=== PATIENT | male | born 1975 | race Caucasian/White ===

== ENCOUNTER 2021-01-06 15:35 | Emergency (ER) | payer SELFPAY ==
[2021-01-06] VITALS (9 sets, daily range): BP systolic 115–138; BP diastolic 80–98; PULSE 65–105; RESP 15–24; TEMP 36.6; O2SAT 93–99; BMI 24.2
--- NOTE | 2021-01-06 | XRR_ITS ---
PROCEDURE INFORMATION: Exam: XR Chest Exam date and time: 01/06/2021 5:49 PM Age: 45 years old Clinical indication: Device placement; Chest tube TECHNIQUE: Imaging protocol: XR of the chest. Views: 1 view. Total images: 1 COMPARISON: CR XR chest 2V* [id number] 01/06/2021 4:06 PM FINDINGS: Tubes, catheters and devices: Interval placement of a right thoracotomy tube with resolution of the right tension pneumothorax. Lungs: Mild dependent atelectasis versus re-expansion edema right lung base. Left lung clear. Pleural spaces: No visible pleural effusion or residual right-sided pneumothorax. Heart/Mediastinum: Cardiac structures and configuration stable. Bones/joints: Unremarkable. XR/XR chest 1V portable [id number] IMPRESSION: Interval placement of a right thoracotomy tube with resolution of the right tension pneumothorax.
--- NOTE | 2021-01-06 15:54 | XRR_ITS ---
PROCEDURE INFORMATION: Exam: XR Chest Exam date and time: 01/06/2021 3:58 PM Age: 45 years old Clinical indication: Pain and injury or trauma; Other: Jose Luis fell on chest 1 week ago; Blunt trauma (contusions or hematomas); Chest pain; Type not specified; Injury date: 12/30/20; Additional info: Cough, chest pain TECHNIQUE: Imaging protocol: XR of the chest. Views: 2 views. Total images: 2 COMPARISON: No relevant prior studies available. FINDINGS: Lungs: Left lung clear. Pleural spaces: Large right tension pneumothorax of estimated 80%. Heart/Mediastinum: Cardiac structures in configuration with slight left mediastinal shift. Bones/joints: No visible rib fracture. XR/XR chest 2V* [id number] IMPRESSION: Large right tension pneumothorax of estimated 80%.
--- NOTE | 2021-01-06 15:58 | W.ED.COVID ---
Documented by User: KELSI Marie 01/06/21 17:13 HPI - COVID General: Chief Complaint: COVID symptoms Stated Complaint: CP, SOB Time Seen by Provider: 01/06/21 15:58 Triage information: Has fever, cough or shortness of breath. No known COVID + exposure last 14 days History of Present Illness: HPI Narrative: Patient is a 45-year-old male who comes to the ED with cough, congestion and body aches. Patient says symptoms started yesterday. He says he also has having some chest pain as well. He does scribes the chest pain as feeling of knives in his chest. He says he started developing the chest pain symptoms abruptly this morning. He says it feels like he cannot catch his breath and that his lungs collapsed. He says if he lays down his breathing is worse. COVID 19 common symptoms: positive non-productive cough, dyspnea, body aches and nasal congestion; negative fever(s), chills, productive cough, fatigue, headache(s), throat pain, nausea, vomiting or diarrhea COVID 19 other sytmptoms: positive chest pain COVID Results: Nasal/Oral Coronavirus 2019 PCR Pending 01/06/21 16:38 01/06/21 Review of Systems Const: Reports: body aches; Denies: fever(s), chills or fatigue Eyes: Denies: change in vision or eye discomfort ENMT: Reports: nasal discharge and nasal congestion; Denies: throat pain or odynophagia Card: Reports: chest pain; Denies: palpitations, edema, swelling of feet/ankles, dyspnea on exertion or orthopnea Resp: Reports: dyspnea and non-productive cough; Denies: productive cough GI: Denies: abdominal pain, nausea, vomiting, diarrhea, constipation or hematochezia : Denies: flank pain, difficulty urinating, dysuria or hematuria Musc: Denies: neck pain, back pain or extremity swelling Skin/Breast: Denies: rash or new lesions Neuro: Denies: headache(s), numbness in extremities or weakness in extremities Physical Exam Narrative: EXAM NARRATIVE: Patient was standing up in exam room when I entered. He appeared uncomfortable and was tachypneic Const: COMMON NORMALS: patient oriented x3, healthy appearing and alert GENERAL APPEARANCE: cooperative HENMT: COMMON NORMALS: normocephalic HEAD & SCALP: normocephalic MOUTH: Normal oral and palatal mucosa present THROAT: posterior oropharynx normal and uvula midline Neck/C-Spine: COMMON NORMALS: supple GENERAL: Yes normal visual inspection Resp: COMMON NORMALS: normal respiratory effort, No retractions and No use of accessory muscles EFFORT & INSPECTION: Yes tachypneic (approx 22-25 resp) AUSCULTATION: breath sounds absent on the right and diminished lung sounds on the right Cardio: COMMON NORMALS: regular rate, regular rhythm, S1 normal heart sound present, S2 normal heart sound present, No gallops present (Cardio), No clicks present (Cardio), No murmurs present (Cardio) and Peripheral pulses 2+ throughout RATE: regular rate RHYTHM: regular rhythm HEART SOUNDS: S1 normal heart sound present and S2 normal heart sound present PERIPHERAL PULSES: Peripheral pulses 2+ throughout GI: COMMON NORMALS: Normal to inspection, nondistended, normoactive bowel sounds present, Soft to palpation, non-tender and no masses PALPATION: Yes Soft to palpation : COMMON NORMALS: Yes no CVA tenderness BLADDER/KIDNEY EXAM: Yes no CVA tenderness Back/Pelvis: COMMON NORMALS: no CVA tenderness Extremity: COMMON NORMALS: normal to inspection Neuro: COMMON NORMALS: patient oriented x3 and moves all extremities SENSORIUM/ORIENTATION: Yes alert Skin: GENERAL SKIN EXAM: dry skin Course Vital Signs: Vital signs: Vital Signs Temperature 97.8 F 01/06/21 15:43 Pulse Rate 81 01/06/21 17:32 Respiratory Rate 16 01/06/21 17:32 Blood Pressure 125/98 01/06/21 17:32 Pulse Oximetry 97 01/06/21 17:32 MDM - COVID MDM Narrative: Medical decision making narrative: Patient is a 45-year-old male came in with some chest pain and shortness of breath. Lung sounds had decreased and diminished breath sounds to right lung. Chest x-ray showed tension pneumothorax of right lung. Patient was then moved to room 11 for chest tube placement. I told Dr. Dietrich about patient case and she will be taking over management of care for patient due to acuity. Lab Data: Attestation: I reviewed the patient's lab results. Labs: Lab Results 01/06/21 01/06/21 01/06/21 Range/Units 16:27 16:27 16:38 WBC 8.0 (4.0-10.0) 10^3/ uL RBC 5.68 H (4.1-5.3) 10^6/u L Hgb 16.8 H (11.7-16.6) g/dL Hct 52.6 H (42.0-52.0) % MCV 92.6 (80-94) fL MCH 29.6 (28.0-34.0) pg MCHC 31.9 (30.0-36.0) g/dL RDW 12.2 (12.1-15.1) % Plt Count 331 (130-400) 10^3/c mm MPV 9.3 (7.4-10.4) fL Neut % (Auto) 55.4 % Lymph % (Auto) 31.9 % [place] % (Auto) 9.0 % Eos % (Auto) 2.6 % Baso % (Auto) 0.7 % Neut # (Auto) 4.45 (1.8-7.7) 10^3/u L Lymph # (Auto) 2.6 (0.8-4.8) 10^3/u L [place] # (Auto) 0.7 (0.2-0.9) 10^3/u L Eos # (Auto) 0.2 (0.0-0.8) 10^3/u L Baso # (Auto) 0.1 (0.0-0.1) 10^3/u L Nucleated RBC % (a uto) 0 % Nucleated RBCs # 0.0 /100WBC Troponin T Baselin e 6 (0-15) ng/L Influenza Type A A g Negative (Negative) Influenza Type B A g Negative (Negative) Imaging Data: CXR: Attestation: I personally reviewed and interpreted this imaging study as follows: Radiologist's impression: [address] [address] XRay Report Signed with Vanessa Patient: TIMOTHY SCHAEFER Unit #: [id number] : 1975 Age/Sex: 45 / M ADM Date: 01/06/21 Loc: ER Room/Bed: Attending Dr: Ordering Provider/Ordering MD: Karlo,Elly E DO Date of Service: 01/06/21 Procedure(s): XR chest 2V* [id number] Accession Number(s): [id number] Report Number: [id number] ADDENDUM XR/XR chest 2V* [id number] THIS REPORT CONTAINS FINDINGS THAT MAY BE CRITICAL TO PATIENT CARE. The findings were verbally communicated via telephone conference with Dr. Rubio at 4:40 PM CDT on 01/06/2021. The findings were acknowledged and understood. Addendum Dictated By: Kedar Conley Addendum Signed By: Kedar Conley Signed Date/Time: 01/06/21 164 8 Addendum Cosigned By: PROCEDURE INFORMATION: Exam: XR Chest Exam date and time: 01/06/2021 3:58 PM Age: 45 years old Clinical indication: Pain and injury or trauma; Other: Jose Luis fell on chest 1 week ago; Blunt trauma (contusions or hematomas); Chest pain; Type not specified; Injury date: 12/30/20; Additional info: Cough, chest pain TECHNIQUE: Imaging protocol: XR of the chest. Views: 2 views. Total images: 2 COMPARISON: No relevant prior studies available. FINDINGS: Lungs: Left lung clear. Pleural spaces: Large right tension pneumothorax of estimated 80%. Heart/Mediastinum: Cardiac structures in configuration with slight left mediastinal shift. Bones/joints: No visible rib fracture. XR/XR chest 2V* [id number] IMPRESSION: Large right tension pneumothorax of estimated 80%. Dictated By: Kedar Conley Signed By: Kedar Conley Signed Date/Time: 01/06/21 1643 DD/ 1641 COVID Results: Nasal/Oral Coronavirus 2019 PCR Pending 01/06/21 16:38 01/06/21 Discharge Plan Discharge Patient Disposition: Transfer to ED Clinical Impression: Tension pneumothorax Condition: Stable Prescriptions: No Action No Known Home Medications RF: 0 Coding Level of Care Code ED Torch Straightener And Heater for Chg Fwd Exam Comprehensive Documented by User: Elly Dietrich DO 01/06/21 18:17 HPI - COVID General: Chief Complaint: COVID symptoms Stated Complaint: CP, SOB Time Seen by Provider: 01/06/21 15:58 COVID Results: Nasal/Oral Coronavirus 2019 PCR Pending 01/06/21 16:38 01/06/21 Procedures Chest Tube Chest Tube 1: Chest Tube Location: right, anterior axillary line and fifth interspace Size of Tube (cm): 32 Chest Tube Prep: Yes betadine prep and sterile drapes applied Local Anesthetic: lidocaine 1% Amount of anesthesia used (mL): 5 Incision Made With: #10 blade Post Procedure: sutured to skin and sterile dressing applied Tube Drainage: none Post Procedure CXR?: Yes Patient Tolerated Procedure: Yes Course Vital Signs: Vital signs: Vital Signs Temperature 97.8 F 01/06/21 15:43 Pulse Rate 81 01/06/21 17:32 Respiratory Rate 16 01/06/21 17:32 Blood Pressure 125/98 01/06/21 17:32 Pulse Oximetry 97 01/06/21 17:32 MDM - COVID MDM Narrative: Medical decision making narrative: The patient was initially seen by the midlevel. I was asked to see this patient due to a tension pneumothorax found on a chest x-ray. When I question the patient regarding this he says over a 300 pound pallet or box fell on him at work over a week ago and he thought he was just sore from that and since then he has been coughing a little short of breath and thought maybe he was getting sick so he presented to the emergency department thinking that he was ill or had pneumonia. Patient had a large pneumothorax on his chest x-ray which would require immediate intervention Patient consented to a chest tube patient procedure note is completed 32 Qatari tube was placed with a large santillan of air. Post chest x-ray shows that the lung is reinflated however tube could potentially be repositioned although its function at this time so they can adjust that at the accepting facility if they feel it is needed. Spoke with the hospitalist they do not admit traumatic pneumothoraxes and less they can have surgery involvement spoke to general surgery down here Dr. Liv recommends we call cardiothoracic surgery however Dr. Catalan is not on-call. Since this pneumothorax is potentially over a week to 10 days old general surgery does not feel comfortable managing the chest tube as a potential for complications and/or the potential need for cardiothoracic intervention i.e. talc or pleurodesis. Patient and family request [facility] for transfer spoke to Dr. Leo in the emergency department and patient will be transferred via EMS as his tube is stable and his vital signs are stable. Medical Records: Attestation: I reviewed the patient's medical records. Lab Data: Labs: Lab Results 01/06/21 01/06/21 01/06/21 Range/Units 16:27 16:27 16:38 WBC 8.0 (4.0-10.0) 10^3/ uL RBC 5.68 H (4.1-5.3) 10^6/u L Hgb 16.8 H (11.7-16.6) g/dL Hct 52.6 H (42.0-52.0) % MCV 92.6 (80-94) fL MCH 29.6 (28.0-34.0) pg MCHC 31.9 (30.0-36.0) g/dL RDW 12.2 (12.1-15.1) % Plt Count 331 (130-400) 10^3/c mm MPV 9.3 (7.4-10.4) fL Neut % (Auto) 55.4 % Lymph % (Auto) 31.9 % [place] % (Auto) 9.0 % Eos % (Auto) 2.6 % Baso % (Auto) 0.7 % Neut # (Auto) 4.45 (1.8-7.7) 10^3/u L Lymph # (Auto) 2.6 (0.8-4.8) 10^3/u L [place] # (Auto) 0.7 (0.2-0.9) 10^3/u L Eos # (Auto) 0.2 (0.0-0.8) 10^3/u L Baso # (Auto) 0.1 (0.0-0.1) 10^3/u L Nucleated RBC % (a uto) 0 % Nucleated RBCs # 0.0 /100WBC Troponin T Baselin e 6 (0-15) ng/L Influenza Type A A g Negative (Negative) Influenza Type B A g Negative (Negative) COVID Results: Nasal/Oral Coronavirus 2019 PCR Pending 01/06/21 16:38 01/06/21 Critical Care Time Critical Care Time: Critical Care Time: Yes Total Critical Care Time: 60 Attestation: Tension pneumothorax requiring immediate intervention and procedure for potential cardiothoracic compromise multiple phone calls to consultants for admission and transfer to level [facility] trauma center Discharge Plan Discharge Patient Disposition: Transfer to ED Clinical Impression: Tension pneumothorax Condition: Stable Prescriptions: No Action No Known Home Medications RF: 0 Coding Level of Care Code ED Torch Stra[employer] Heater for Chg Fwd Exam Comprehensive
--- NOTE | 2021-01-06 15:59 | ECG_ITS ---
[facility] Test Date: 2021-01-06 Pat Name: TIMOTHY SCHAEFER Department: Room: Gender: Male Form Builder: : 1975 Requested By: Rakesh Carlos Order Number: [id number] Blank MD: Nathalie Murillo M.D. Measurements Intervals [place] Rate: 65 P: 76 MS: 201 QRS: 74 QRSD: 92 T: 71 QT: 360 QTc: 375 Interpretive Statements SINUS RHYTHM POSSIBLE LEFT ATRIAL ENLARGEMENT [-0.1mV P WAVE IN V1/V2] POSSIBLE RIGHT VENTRICULAR CONDUCTION DELAY [RSR (QR) IN V1/V2] Compared to ECG 01/06/2021 15:55:02 No significant changes Electronically Signed On 01-07-2021 7:16:20 CDT by Nathalie Murillo M.D. [id number]
[2021-01-06 16:33] LABS: Basophils # 0.1 10^3/uL (0.0-0.1); Basophils % 0.7 %; Eosinophils # 0.2 10^3/uL (0.0-0.8); Eosinophils % 2.6 %; Hematocrit 52.6 % (42.0-52.0); Hemoglobin 16.8 g/dL (11.7-16.6); Lymphocytes # 2.6 10^3/uL (0.8-4.8); Lymphocytes % 31.9 %; Mean Corpuscular HGB Conc 31.9 g/dL (30.0-36.0); Mean Corpuscular Hemoglobin 29.6 pg (28.0-34.0); Mean Corpuscular Volume 92.6 fL (80-94); Mean Platelet Volume 9.3 fL (7.4-10.4); Monocytes # 0.7 10^3/uL (0.2-0.9); Neutrophils # 4.45 10^3/uL (1.8-7.7); Neutrophils % 55.4 %; Nucleated Red Blood Cells % 0 %; Platelet Count 331 10^3/cmm (130-400); Red Blood Count 5.68 10^6/uL (4.1-5.3); Red Cell Distribution Width 12.2 % (12.1-15.1)
[2021-01-06 17:00] LABS: Troponin(5th) Baseline 6 ng/L (0-15)
[2021-01-06] MEDS: midazolam 1 mg/mL INJ 2 mL 5 MG IVP (17:12)
[2021-01-06] MEDS: fentaNYL 50 mcg/mL INJ 2mL 100 MCG IVP (17:13)
[2021-01-06 17:19] LABS: Influenza A by IFA Negative (Negative); Influenza B by IFA Negative (Negative)
--- NOTE | 2021-01-06 17:43 | PC.NURSE ---
2 of versed given at 1722. chest tube inserted at 1730. x-ray confirmed placement.
--- NOTE | 2021-01-06 17:59 | ECG_ITS ---
[facility] Test Date: 2021-01-06 Pat Name: TIMOTHY SCHAEFER Department: Room: Gender: Male Digital Photo Printer: : 1975 Requested By: Rakesh Carlos Order Number: [id number] Blank MD: Nathalie Murillo M.D. Measurements Intervals [place] Rate: 96 P: 99 MD: 178 QRS: 84 QRSD: 88 T: 90 QT: 324 QTc: 411 Interpretive Statements SINUS RHYTHM POSSIBLE RIGHT ATRIAL ENLARGEMENT [0.25mV P WAVE] LEFT ATRIAL ENLARGEMENT [-0.15mV P WAVE IN V1/V2] POSSIBLE RIGHT VENTRICULAR CONDUCTION DELAY [RSR (QR) IN V1/V2] No previous ECG available for comparison Electronically Signed On 01-07-2021 7:41:52 CDT by Nathalie Murillo M.D. [id number]
[2021-01-06 18:16] LABS: Alanine Aminotransferase 21 U/L (0-41); Albumin Level 4.6 g/dL (3.5-5.2); Alkaline Phosphatase 120 IU/L (40-130); Anion Gap 15.7 (5-19); Aspartate Amino Transferase 20 U/L (0-40); Blood Urea Nitrogen 12 mg/dL (6-20); Calcium 9.1 mg/dL (8.5-10.5); Carbon Dioxide 26 mmol/L (22-29); Chloride 102 mmol/L (98-107); Globulin 2.5 g/dL (1.3-4.6); Glomerular Filtration Rate 120.9 mL/min (90-130); Glucose 97 mg/dL (65-115); Osmolality Calculated 288 mOsm/kg (285-295); Potassium 4.7 mmol/L (3.5-5.1); Sodium 139 mmol/L (136-145); Total Bilirubin 0.4 mg/dL (0.15-1.2); Total Protein 7.1 g/dL (6.6-8.7)
[2021-01-06] MEDS: lidocaine 1% INJ 20 mL INJECTION (18:21)
[2021-01-06] MEDS: ondansetron 2 mg/ML SDV 2 mL 4 MG IVP (18:57)
[2021-01-06] MEDS: morphine 4 mg/mL SDV 1 mL 8 MG IVP (18:59)
[2021-01-07 14:54] LABS: Coronavirus Test Green County Not Detected
--- NOTE | 2021-01-07 16:11 | PC.NURSE ---
notified pt of negative COVID results
--- NOTE | 2021-01-08 08:45 | PC.NURSE ---
Patient called at this time to be notified of COVID results. No answer. Message left at this time.
--- NOTE | 2021-01-08 16:18 | PC.NURSE ---
Patient called for the 2nd time to be notified of COVID results. No answer. Message left.
== END 2021-01-06 19:12 ==
PROVIDERS: Emergency Provider Physician Assistant
DX: J93.0 Spontaneous tension pneumothorax (principal)
CPT/HCPCS: 32551; 71045; 71046; 80053; 84484; 85025; 87635; 87804; 93005; 96374; 96375; 99291; C1713; J2250; J2270; J2405; J3010